=== PATIENT | female | born 1980 | race African-American/Black ===

== ENCOUNTER 2017-06-20 09:24 | Emergency (ER) | payer MEDICAID ==
[~2017-06-20] VITALS: Ht 167.6 cm; Wt 82.0 kg
[2017-06-20] MEDS ORDERED: PREN1CAP PO (10:55)
[2017-06-20 11:06] LABS: CLARITY URINE CLEAR (CLEAR); COLOR URINE YELLOW (YELLOW); KETONES URINE NEGATIVE (NEGATIVE); LEUKOCYTE ESTERASE URINE NEGATIVE (NEGATIVE); NITRITE URINE NEGATIVE (NEGATIVE); OCCULT BLOOD URINE NEGATIVE (NEGATIVE); PROTEIN URINE NEGATIVE (NEGATIVE); SPECIFIC GRAVITY URINE 1.018 (1.005-1.030); UROBILINOGEN URINE 0.2 E.U./dL (0.2-1.0)
[2017-06-20 11:50] LABS: BASOPHILS % 0.6 % (0.0-2.0); EOSINOPHILS % 0.7 % (0.0-5.0); HEMATOCRIT. 38.8 % (36.0-48.0); LYMPHOCYTES % 20.2 % (20.0-50.0); MEAN CORPUSCULAR HEMOGLOBIN 29.6 pg (28.0-32.0); MEAN CORPUSCULAR VOLUME 88.7 fL (81.0-99.0); MEAN PLATELET VOLUME 8.1 fl (7.4-10.4); NEUTROPHILS % 72.5 % (40.0-76.0); PLATELET 277 x1000/uL (130-400); RED BLOOD CELL COUNT 4.37 mill/uL (4.2-5.4); RED CELL DISTRIBUTION WIDTH 13.2 % (11.6-14.6)
[2017-06-20 15:18] VITALS: BP 105/57
== END 2017-06-20 15:22 | disposition home or self-care (01) ==
LOC: ER 10:10
DX: O26.891 Other specified pregnancy related conditions, first trimester (principal); R10.2 Pelvic and perineal pain; Z3A.13 13 weeks gestation of pregnancy
CPT/HCPCS: 36415; 76801; 81003; 84702; 85025; 86850; 86900; 99285

== ENCOUNTER 2018-04-24 20:40 | Emergency (ER) | payer MEDICAID ==
[~2018-04-24 20:40] MED LIST: PREN1CAP PO
[2018-04-24] MEDS ORDERED: FAMOTIDINE 20MG/2ML VIAL IV ONE (21:30)
[2018-04-24] MEDS ORDERED: DIPHENHYDRAMINE 50MG/ML VIAL IV ONE (21:30)
[2018-04-24] MEDS ORDERED: METHYLPREDNISOLONE SOD SUCC 125 MG/2 ML VIAL IV ONE (21:30)
[2018-04-24 22:13] LABS: CHLORIDE 106 mEq/L (98-107)
[2018-04-24 22:14] LABS: BASOPHILS % 0.8 % (0.0-2.0); EOSINOPHILS % 1.2 % (0.0-5.0); HEMATOCRIT. 42.4 % (36.0-48.0); HEMOGLOBIN. 14.1 g/dL (12.0-16.0); LYMPHOCYTES % 37.7 % (20.0-50.0); MEAN CORPUSCULAR HEMOGLOBIN 29.9 pg (28.0-32.0); MEAN PLATELET VOLUME 7.8 fl (7.4-10.4); MONOCYTES % 8.2 % (2.0-8.0); NEUTROPHILS % 52.1 % (40.0-76.0); PLATELET 290 x1000/uL (130-400); RED BLOOD CELL COUNT 4.71 mill/uL (4.2-5.4); RED CELL DISTRIBUTION WIDTH 13.6 % (11.6-14.6)
[2018-04-24 22:23] LABS: HCG SCREEN NEGATIVE
[2018-04-25 01:30] VITALS: BP 115/64
== END 2018-04-25 01:36 | disposition home or self-care (01) ==
LOC: ER 20:40
DX: T78.3XXA Angioneurotic edema, initial encounter (principal); R00.1 Bradycardia, unspecified; Z91.018 Allergy to other foods; Z98.890 Other specified postprocedural states
CPT/HCPCS: 36415; 71045; 80053; 84703; 85025; 93005; 96374; 96375; 99284; J1200; J2930; J3490; Z7610